=== PATIENT | male | born 1975 | race Caucasian/White ===

== ENCOUNTER 2019-06-17 19:06 | Emergency (ER) | payer OTHER ==
[~2019-06-17] VITALS: Ht 172.7 cm; Wt 112.9 kg
[2019-06-17 19:29] VITALS: Ht 172.7 cm; Wt 112.9 kg
[2019-06-17 22:47] VITALS: BP 159/99
== END 2019-06-17 22:48 | disposition home or self-care (01) ==
LOC: ED 19:06
DX: M75.101 Unspecified rotator cuff tear or rupture of right shoulder, not specified as traumatic (principal); I10 Essential (primary) hypertension; M10.9 Gout, unspecified; X50.0XXA Overexertion from strenuous movement or load, initial encounter; Y93.89 Activity, other specified; Y92.89 Other specified places as the place of occurrence of the external cause; Y99.8 Other external cause status